=== PATIENT | female | born 1925 | race Caucasian/White ===

== ENCOUNTER 2017-03-28 06:56 | Day surgery (SDC) | payer MEDICARE, BC ==
[~2017-03-28 06:56] MED LIST: Gatifloxacin 0.5% Ophth Soln 2.5 ML Bot EYELF SCH; Lactated Ringers 1,000 ML IV SCH; Sodium Chloride 0.9% 5 ML Syringe FLUSH PRN
[2017-03-28] MEDS: Cyclopentolate 1% Opth Soln 2 ML Bottle EYELF SCH ×3 (07:52→08:24)
[2017-03-28] MEDS: Phenylephrine 10% Ophth Soln 5 ML Bot EYELF SCH ×3 (08:04→08:35)
[2017-03-28] MEDS ORDERED: Tetracaine 0.5% 2 ML Bottle EYEBOTH ONE (09:30)
[2017-03-28] MEDS ORDERED: Carbachol 0.01% Intraocular 1.5 ML Vial EYELF ONE (09:30)
[2017-03-28] MEDS ORDERED: Balanced Salt Solution Plus Ophth Irrig 500 ML Bottle IOCULAR ONE (09:30)
[2017-03-28] MEDS ORDERED: EPINEPHrine 1:1000 1 MG/ML SDV ONE (09:30)
[2017-03-28] MEDS ORDERED: Water For Irrigation,Sterile 1,500 ML Container IRR ONE (09:30)
[2017-03-28] MEDS ORDERED: Lidocaine 2% with EPINEPHrine 1:100,000 20 ML MDV INJECT ONE (09:30)
[2017-03-28] MEDS ORDERED: Dexamethasone/Neomycin/Polymyxin B Ophth Oint 3.5 GM Tube EYELF ONE (09:30)
[2017-03-28] MEDS ORDERED: Hyaluronate Sodium 1% 0.85 ML Syringe IOCULAR ONE (09:30)
[2017-03-28] MEDS ORDERED: Balanced Salt Solution Ophth Irrig 15 ML Bottle EYELF ONE (09:30)
[2017-03-28] MEDS ORDERED: Lidocaine 1% 10 ML MDV INJECT ONE (09:30)
[2017-03-28 10:58] VITALS: BP 183/63
--- NOTE | 2017-03-29 07:59 | OR ---
DATE OF SURGERY: 03/28/2017 SURGEON: Dashawn Sanders MD PREOPERATIVE DIAGNOSIS: Cataract, left eye. POSTOPERATIVE DIAGNOSIS: Same. OPERATION PERFORMED: Phacoemulsification with posterior chamber lens insertion, left eye. FINDINGS: The patient was taken to the operating room where appropriate anesthesia, sedation and monitoring were provided. A retrobulbar block was given on the left side. The eye was massaged and was found to be appropriately soft. The eye and eyelids were then prepped and draped in the usual sterile manner. A lid speculum was placed. A micro sharp blade was used to enter the anterior chamber inside the limbus inferior-temporally. Xylocaine was irrigated into the eye at this site. Healon was irrigated into the eye through this site. Then using a 2.85 mm corneal blade an entry was made into the anterior chamber just inside the limbus temporally. Healon was again irrigated into the eye. Then using a cystitome, the anterior capsulorrhexis was created. The lens nucleus was hydrodissected using a 27 gauge cannula and balanced salt solution. The phacoemulsification unit was introduced through the temporal site and the Steve spatula through the inferior temporal site. In so doing, the lens nucleus was phacoemulsified. The cortical fragments of the lens were removed using the irrigation aspiration unit. The posterior capsule was polished. Healon was irrigated into the eye. The posterior chamber lens was inserted and rotated into position inside the capsular bag. The Healon was irrigated out of the eye. Miostat was irrigated into the eye and the pupil rounded nicely. A single interrupted 10-0 Nylon suture was placed through the temporal corneal incision site. Balanced salt solution was irrigated into the eye. The wound was tested and found to be tight. Maxitrol ointment was placed into the patient's left eye. The eyelids were closed and an eye patch and bales shield were placed. The patient left the operating room in good condition. /[id number]/MODL
== END 2017-03-28 11:05 | disposition home or self-care (01) ==
LOC: KA.SDS 06:56
PROVIDERS: ATTEND Ophthalmology
DX: H26.9 Unspecified cataract (principal); I12.9 Hypertensive chronic kidney disease with stage 1 through stage 4 chronic kidney disease, or unspecified chronic kidney disease; N18.3 Chronic kidney disease, stage 3 (moderate); I25.810 Atherosclerosis of coronary artery bypass graft(s) without angina pectoris; E78.5 Hyperlipidemia, unspecified; Z88.2 Allergy status to sulfonamides; Z79.01 Long term (current) use of anticoagulants; Z95.2 Presence of prosthetic heart valve; Z79.82 Long term (current) use of aspirin; Z79.899 Other long term (current) drug therapy; Z90.710 Acquired absence of both cervix and uterus; Z90.49 Acquired absence of other specified parts of digestive tract; K21.9 Gastro-esophageal reflux disease without esophagitis
CPT/HCPCS: 66984; A9270; J0171; J7120; 00142; C1780

== ENCOUNTER 2017-07-25 09:10 | Day surgery (SDC) | payer MEDICARE, BC ==
[2017-07-25] MEDS ORDERED: Lactated Ringers 1,000 ML IV SCH (09:15)
[2017-07-25] MEDS ORDERED: Gatifloxacin 0.5% Ophth Soln 2.5 ML Bot EYERT SCH (09:15)
[2017-07-25] MEDS ORDERED: Sodium Chloride 0.9% 5 ML Syringe FLUSH PRN (09:15)
[2017-07-25] MEDS: Cyclopentolate 1% Opth Soln 2 ML Bottle EYERT SCH ×3 (09:32→09:53)
[2017-07-25] MEDS: Phenylephrine 10% Ophth Soln 5 ML Bot EYERT SCH ×3 (09:42→09:58)
[2017-07-25] MEDS ORDERED: Balanced Salt Solution Ophth Irrig 15 ML Bottle EYERT ONE (11:57)
[2017-07-25] MEDS ORDERED: Water For Irrigation,Sterile 1,500 ML Container IRR ONE (11:57)
[2017-07-25] MEDS ORDERED: Balanced Salt Solution Plus Ophth Irrig 500 ML Bottle IOCULAR ONE (11:58)
[2017-07-25] MEDS ORDERED: Tetracaine 0.5% 2 ML Bottle EYEBOTH ONE (12:02)
[2017-07-25] MEDS ORDERED: EPINEPHrine 1 MG/ML SDV ONE (12:02)
[2017-07-25] MEDS ORDERED: Carbachol 0.01% Intraocular 1.5 ML Vial EYERT ONE (12:02)
[2017-07-25] MEDS ORDERED: Lidocaine 1% 10 ML MDV INJECT ONE (12:03)
[2017-07-25] MEDS ORDERED: Lidocaine 2% with EPINEPHrine 1:100,000 20 ML MDV INJECT ONE (12:03)
[2017-07-25] MEDS ORDERED: Dexamethasone/Neomycin/Polymyxin B Ophth Oint 3.5 GM Tube EYERT ONE (12:03)
[2017-07-25] MEDS ORDERED: Hyaluronate Sodium 1% 0.85 ML Syringe IOCULAR ONE (12:04)
[2017-07-25 12:29] VITALS: BP 175/71
--- NOTE | 2017-07-26 09:51 | OR ---
DATE OF SURGERY: 07/25/2017 SURGEON: Dashawn Sanders MD PREOPERATIVE DIAGNOSIS: Cataract, right eye. POSTOPERATIVE DIAGNOSIS: Cataract, right eye. OPERATION PERFORMED: Phacoemulsification with posterior chamber lens insertion, right eye. FINDINGS: The patient was taken to the operating room where appropriate anesthesia, sedation and monitoring were provided. A retrobulbar block was given on the right side. The eye was massaged and was found to be appropriately soft. The eye and eyelids were then prepped and draped in the usual sterile manner. A lid speculum was placed. A micro sharp blade was used to enter the anterior chamber inside the limbus superior-temporally. Xylocaine was irrigated into the eye at this site. Healon was irrigated into the eye through this site. Then using a 2.85 mm corneal blade an entry was made into the anterior chamber just inside the limbus temporally. Healon was again irrigated into the eye. Then using a cystitome, the anterior capsulorrhexis was created. The lens nucleus was hydrodissected using a 27 gauge cannula and balanced salt solution. The phacoemulsification unit was introduced through the temporal site and the Steve spatula through the superior temporal site. In so doing, the lens nucleus was phacoemulsified. The cortical fragments of the lens were removed using the irrigation aspiration unit. The posterior capsule was polished. Healon was irrigated into the eye. The posterior chamber lens was inserted and rotated into position inside the capsular bag. The Healon was irrigated out of the eye. Miostat was irrigated into the eye and the pupil rounded nicely. A single interrupted 10-0 Nylon suture was placed through the temporal corneal incision site. Balanced salt solution was irrigated into the eye. The wound was tested and found to be tight. Maxitrol ointment was placed into the patient's right eye. The eyelids were closed and an eye patch and bales shield were placed. The patient left the operating room in good condition. /[id number]/MODL
== END 2017-07-25 12:44 | disposition home or self-care (01) ==
LOC: KA.SDS 09:10
PROVIDERS: ATTEND Ophthalmology
DX: H26.9 Unspecified cataract (principal); I25.10 Atherosclerotic heart disease of native coronary artery without angina pectoris; I12.9 Hypertensive chronic kidney disease with stage 1 through stage 4 chronic kidney disease, or unspecified chronic kidney disease; N18.3 Chronic kidney disease, stage 3 (moderate); E78.5 Hyperlipidemia, unspecified; Z90.710 Acquired absence of both cervix and uterus; Z95.1 Presence of aortocoronary bypass graft; Z90.49 Acquired absence of other specified parts of digestive tract; Z98.890 Other specified postprocedural states; Z88.2 Allergy status to sulfonamides; Z79.82 Long term (current) use of aspirin; Z79.899 Other long term (current) drug therapy; Z79.01 Long term (current) use of anticoagulants; Z95.2 Presence of prosthetic heart valve; Z96.653 Presence of artificial knee joint, bilateral
CPT/HCPCS: 66984; A9270; J0171; J7120; 00142; C1780